=== PATIENT | male | born 1985 | race American Indian/Alaskan Native ===

== ENCOUNTER 2021-06-13 21:08 | Emergency (ER) | payer SELFPAY ==
--- NOTE | 2021-06-13 22:41 | Emergency Department Report ---
ED General Adult HPI - General Chief complaint: Abdominal Pain Stated complaint: CONSTIPATION Time Seen by Provider: 06/13/21 21:42 Source: patient Mode of arrival: Ambulatory Limitations: No Limitations - History of Present Illness Initial comments: 36-year-old male presents palpable complaining of constipation for the last 2 to 5 days not resolved with [id number] medications and seeking stronger anticonstipation medication reports no fever, chills, sweats no diarrhea no nausea no vomiting -: Gradual Radiation: non-radiation Quality: aching Consistency: constant Improves with: none Worsens with: none Associated Symptoms: denies: chest pain, cough, loss of appetite, nausea/vomiting, syncope, weakness Treatments Prior to Arrival: none - Related Data Previous Rx's Medication Instructions Recorded Last Taken Type Lactulose [Cephulac] 30 gm PO Q6HR #450 ml 06/13/21 Unknown Rx bisacodyL [Dulcolax suppos] 10 mg [place] ONCE #7 supp.rect 06/13/21 Unknown Rx bisacodyL [Dulcolax] 5 mg PO DAILY #7 tab 06/13/21 Unknown Rx Allergies Allergy/AdvReac Type Severity Reaction Status Date / Time No Known Allergies Allergy Unverified 04/19/21 12:26 ED Review of Systems ROS: Stated complaint: CONSTIPATION Other details as noted in HPI Comment: All other systems reviewed and negative ED Past Medical Hx - Past Medical History Previous Medical History?: No Additional medical history: denies - Surgical History Past Surgical History?: Yes Additional Surgical History: right index finger - Social History Smoking Status: Current Every Day Smoker Substance Use Type: None - Medications Home Medications: Home Medications Medication Instructions Recorded Confirmed Last Taken Type Lactulose [Cephulac] 30 gm PO Q6HR #450 ml 06/13/21 Unknown Rx bisacodyL [Dulcolax suppos] 10 mg [place] ONCE #7 supp.rect 06/13/21 Unknown Rx bisacodyL [Dulcolax] 5 mg PO DAILY #7 tab 06/13/21 Unknown Rx ED Physical Exam - General Limitations: No Limitations General appearance: alert, in no apparent distress - Head Head exam: Present: atraumatic, normocephalic - Eye Eye exam: Present: normal appearance - ENT ENT exam: Present: mucous membranes moist - Neck Neck exam: Present: normal inspection - Respiratory Respiratory exam: Present: normal lung sounds bilaterally. Absent: respiratory distress - Cardiovascular Cardiovascular Exam: Present: regular rate, normal rhythm. Absent: systolic murmur, diastolic murmur, rubs, gallop - GI/Abdominal GI/Abdominal exam: Present: soft, guarding, normal bowel sounds. Absent: tenderness, rebound - Rectal Rectal exam: Present: deferred - Extremities Exam Extremities exam: Present: normal inspection - Back Exam Back exam: Present: normal inspection - Neurological Exam Neurological exam: Present: alert, oriented X3 - Psychiatric Psychiatric exam: Present: normal affect, normal mood - Skin Skin exam: Present: warm, dry, intact, normal color. Absent: rash Critical care attestation.: If time is entered above; I have spent that time in minutes in the direct care of this critically ill patient, excluding procedure time. ED Disposition Clinical Impression: Constipation Disposition: 01 HOME / SELF CARE / HOMELESS Is pt being admited?: No Does the pt Need Aspirin: No Condition: Stable Instructions: Constipation, Adult Prescriptions: Lactulose [Cephulac] 30 gm PO Q6HR #450 ml bisacodyL [Dulcolax suppos] 10 mg [place] ONCE #7 supp.rect bisacodyL [Dulcolax] 5 mg PO DAILY #7 tab Referrals: [facility] [Provider Group] - 3-5 Days
== END 2021-06-13 22:46 | disposition home or self-care (01) ==
LOC: ED 21:08
DX: K08.89 Other specified disorders of teeth and supporting structures (principal); F17.200 Nicotine dependence, unspecified, uncomplicated; Z79.899 Other long term (current) drug therapy
CPT/HCPCS: 99281